=== PATIENT | female | born 1975 | race Caucasian/White ===

== ENCOUNTER 2024-08-03 18:35 | Emergency (ER) | payer SELFPAY ==
--- NOTE | 2024-08-03 18:56 | ER ---
Nurse's Notes [facility] Name: Sienna Molina Age: 49 yrs Sex: Female : 1975 Arrival Date: 08/03/2024 Time: 18:35 Bed 20 Private MD: Diagnosis: Other otitis externa, right ear Presentation: 08/03 18:48 Chief complaint: Patient states: she has to clean her ears out periodically with ap3 alcohol and peroxide with a q-tip. patient is unsure if she left some cotton in the ear when she last did this a few days ago, but she is complaining of increased pain and inflammation since. patient currently rates her pain as a 10/10 on the pain scale. Coronavirus screen: At this time, the client does not indicate any symptoms associated with coronavirus-19. Ebola Screen: No symptoms or risks identified at this time. Initial Sepsis Screen: Does the patient meet any 2 criteria? HR > 90 bpm. Does the patient have a suspected source of infection? No. Patient's initial sepsis screen is negative. Risk Assessment: Do you want to hurt yourself or someone else? Patient reports no desire to harm self or others. Onset of symptoms was August 01, 2024. 18:48 Method Of Arrival: Ambulatory ap3 18:48 Acuity: AMY 4 ap3 Triage Assessment: 18:50 General: Appears in no apparent distress. General: Behavior is calm, cooperative, ap3 appropriate for age. Pain: Complains of pain in right jaw and right ear Pain currently is 10 out of 10 on a pain scale. Pain began 2-3 days ago. EENT: Neuro: Level of Consciousness is awake, alert, obeys commands, Oriented to person, place, time, situation, Appropriate for age Gait is steady. Respiratory: Airway is patent Respiratory effort is even, unlabored, Respiratory pattern is regular, symmetrical. Historical: - Allergies: 18:50 Latex, Natural Rubber; ap3 - PMHx: 18:50 Diabetes mellitus; ap3 - Immunization history:: Client reports having NOT received the Covid vaccine. Last tetanus immunization: unknown, Flu vaccine is not up to date. - Infectious Disease History:: Denies. - Social history:: Smoking status: Reported history of juuling and/or vaping. Screenin:52 [facility] ED Fall Risk Assessment (Adult) History of falling in the last 3 months, ap3 including since admission No falls in past 3 months (0 pts) Confusion or Disorientation No (0 pts) Intoxicated or Sedated No (0 pts) Impaired Gait No (0 pts) Mobility Assist Device Used No (0 pt) Altered Elimination No (0 pt) Score/Fall Risk Level 0 - 2 = Low Risk Oriented to surroundings, Maintained a safe environment, Educated pt \T\ family on fall prevention, incl call for assistance when getting out of bed, Assessed \T\ reinforced patient's understanding of fall precautions, Hourly rounding (assess needs \T\ fall precautionary measures) done, Used ambulatory aids as needed (educated on \T\ assisted with). Abuse screen: Denies threats or abuse. Nutritional screening: No deficits noted. Tuberculosis screening: No symptoms or risk factors identified. Assessment: 19:05 Reassessment: Patient appears in no apparent distress at this time. Patient is alert, bp oriented x 3, equal unlabored respirations, skin warm/dry/pink. Vital Signs: 18:48 BP 145 / 91; Pulse 112; Resp 18; Temp 98.1(O); Pulse Ox 99% on R/A; Weight 96.62 kg; ap3 Height 5 ft. 3 in. ; Pain 10/10; 18:48 Body Mass Index 37.73 (96.62 kg, 160.02 cm) ap3 18:48 Pain Scale: Adult ap3 ED Course: 18:40 Patient arrived in ED. cj3 18:44 Beulah Joy FNP-C is [facility]. kb 18:45 Deanne Cruz MD is Attending Physician. kb 18:47 Leonardo Madden, FRANCISCA is Primary Nurse. bp 18:50 Triage completed. ap3 18:52 Arm band placed on right wrist. ap3 19:05 Patient has correct armband on for positive identification. bp 19:05 No provider procedures requiring assistance completed. Patient did not have IV access bp during this emergency room visit. Administered Medications: 19:07 Drug: Cephalexin PO 500 mg PO once Route: PO; bp 19:08 Follow up: Response: No adverse reaction bp Medication: 19:05 VIS not applicable for this client. bp Outcome: 18:56 Discharge ordered by . kb 19:05 Discharged to home ambulatory, bp 19:05 Condition: stable 19:05 Discharge instructions given to patient, Instructed on discharge instructions, follow up and referral plans. medication usage, Demonstrated understanding of instructions, follow-up care, medications, Prescriptions given X 2, 19:08 Patient left the ED. bp Signatures: Beulah Joy FNP-C FNP-Ckb Peltier, Brian RN RN bp Yoselin Scott RN RN ap3 Carlene Fajardo cj3 Corrections: (The following items were deleted from the chart) 18:50 18:50 Allergies: No Known Allergies; ap3 ap3
--- NOTE | 2024-08-03 18:56 | EDPHYS ---
Physician Documentation [facility] Name: Sienna Molina Age: 49 yrs Sex: Female : 1975 Arrival Date: 08/03/2024 Time: 18:35 Bed 20 Private MD: ED Physician Deanne Cruz HPI: 08/03 18:57 This 49 yrs old Female presents to ER via Ambulatory with complaints of Ear Pain, kb Swelling of Ear. 18:57 Pt is a 49 year old female who presents for right ear pain and swelling that started 2 kb days ago after cleaning ear. States it is difficult to hear out of it so she is concerned there is something in there. . Historical: - Allergies: 18:50 Latex, Natural Rubber; ap3 - PMHx: 18:50 Diabetes mellitus; ap3 - Immunization history:: Client reports having NOT received the Covid vaccine. Last tetanus immunization: unknown, Flu vaccine is not up to date. - Infectious Disease History:: Denies. - Social history:: Smoking status: Reported history of juuling and/or vaping. ROS: 18:56 Constitutional: As per HPI kb Exam: 18:56 Constitutional: This is a well developed, well nourished patient who is awake, alert, kb and in no acute distress. Head/Face: Normocephalic, atraumatic. Respiratory: Respirations even and unlabored. No increased work of breathing. Talking in full sentences Skin: Warm, dry with normal turgor. Normal color. MS/ Extremity: Pulses equal, no cyanosis. Neurovascular intact. Full, normal range of motion. Neuro: Awake and alert, GCS 15, oriented to person, place, time, and situation. 18:56 ENT: External ear(s): erythema, that is minimal, of the pinna of right ear, swelling, that is minimal, that is moderate, of the pinna of right ear, Ear canal(s): swelling, that is severe, of the right canal, TM's: not visable, edema, Vital Signs: 18:48 BP 145 / 91; Pulse 112; Resp 18; Temp 98.1(O); Pulse Ox 99% on R/A; Weight 96.62 kg; ap3 Height 5 ft. 3 in. ; Pain 10/10; 18:48 Body Mass Index 37.73 (96.62 kg, 160.02 cm) ap3 18:48 Pain Scale: Adult ap3 MDM: 18:45 Medical Screening Exam initiated kb 18:57 Differential diagnosis: otitis media, otitis externa, ruptured TM. Data reviewed: vital kb signs, nurses notes. Counseling: I had a detailed discussion with the patient and/or guardian regarding the historical points, exam findings, and any diagnostic results supporting the discharge/admit diagnosis, the need for outpatient follow up, an ENT specialist, to return to the emergency department if symptoms worsen or persist or if there are any questions or concerns that arise at home. Administered Medications: 19:07 Drug: Cephalexin PO 500 mg PO once Route: PO; bp 19:08 Follow up: Response: No adverse reaction bp Disposition Summary: 08/03/24 18:56 Discharge Ordered Notes: Location: [place] kb Condition: Stable kb Diagnosis - Other otitis externa, right ear kb Followup: kb - With: Emergency Department - When: As needed - Reason: Worsening of condition Followup: kb - With: Private Physician - When: 2 - 3 days - Reason: Recheck today's complaints, Continuance of care, Re-evaluation by your physician Discharge Instructions: - Discharge Summary Sheet kb - Otitis Externa, [id number] kb - Ear Drops, Adult, [id number] kb Forms: - Medication Reconciliation Form kb - Antibiotic Education kb - Prescription Opioid Use kb - Patient Portal Instructions kb - Leadership Thank You Letter kb Prescriptions: - Cephalexin 500 mg Oral Capsule - take 1 capsule ORAL route every 8 hours for 10 days; 30 capsule; Refills: 0, kb Product Selection Permitted - Ciprodex 0.3-0.1 % Otic drops, suspension - instill 4 drops OTIC route every 12 hours for 7 days , for ears ONLY; 1 kb Unspecified; Refills: 0, Product Selection Permitted Signatures: Beulah Joy FNP-C FNP-Ckb Peltier, Brian, RN RN bp Yoselin Scott RN RN ap3 Corrections: (The following items were deleted from the chart) 18:50 18:50 Allergies: No Known Allergies; ap3 ap3
[2024-08-03] MEDS ORDERED: CEPHALEXIN 250 MG CAP ONE (18:58)
[2024-08-03 19:26] VITALS: BP 145/91; TEMP 98.1; O2SAT 99
== END 2024-08-03 19:08 | disposition home or self-care (01) ==
LOC: ER 18:35
DX: H60.8X1 Other otitis externa, right ear (principal)
CPT/HCPCS: 99283